=== PATIENT | male | born 1970 | race Caucasian/White ===

== ENCOUNTER 2022-12-26 01:50 | Emergency (ER) | payer OTHER ==
[~2022-12-26] VITALS: Ht 165.1 cm; Wt 81.6 kg
[2022-12-26 01:53] VITALS: BP 143/104
--- NOTE | 2022-12-26 01:59 | NUR ---
pt ambulatory to bed 04
--- NOTE | 2022-12-26 02:02 | NUR ---
PATIENT RESTING IN BED, A/OX4, CHEST RISE AND FALL SYMMETRICAL, NO C/O PAIN OR S/S OF DISTRESS, ON MONITOR.
[2022-12-26] MEDS ORDERED: diphenhydrAMINE 50 MG/ML VIAL IM ONE (02:05)
[2022-12-26] MEDS ORDERED: methylPREDNISolone SS 125 MG in WATER STERILE 2 ML IM ONE (02:05)
--- NOTE | 2022-12-26 02:05 | NUR ---
Dr. Silverman assessing patient.
[2022-12-26] MEDS ORDERED: WATER STERILE 10 ML MC ONE (02:10)
[2022-12-26] MEDS ORDERED: methylPREDNISolone SS 125 MG/2 ML VIAL ONE (02:10)
[2022-12-26] MEDS ORDERED: PRED20TA5 PO (02:41)
[2022-12-26] MEDS ORDERED: FEXO180T82 PO (02:41)
[2022-12-26 02:55] VITALS: BP 131/85
== END 2022-12-26 02:55 | disposition home or self-care (01) ==
LOC: MED 01:50
DX: T75.89XA Other specified effects of external causes, initial encounter (principal); I10 Essential (primary) hypertension; X58.XXXA Exposure to other specified factors, initial encounter; Y93.89 Activity, other specified; Y92.89 Other specified places as the place of occurrence of the external cause; Y99.8 Other external cause status
CPT/HCPCS: 96372; 99284; J1200; J2930